=== PATIENT | male | born 1970 | race Caucasian/White ===

== ENCOUNTER 2021-09-24 10:10 | Day surgery (SDC) | payer BC ==
[2021-09-23 14:01] LABS: BASOPHILS # (AUTO) 0.1 X10'3 (0-0.2); BASOPHILS % (AUTO) 0.8 % (0-1); EOSINOPHILS # (AUTO) 0.3 X10'3 (0-0.9); EOSINOPHILS % (AUTO) 3.6 % (0-6); LYMPHOCYTES # (AUTO) 1.6 X10'3 (1.1-4.8); LYMPHOCYTES % (AUTO) 20.8 % (21-51); MEAN CORPUSCULAR HEMOGLOBIN 30.8 PG (27.0-31.0); MEAN CORPUSCULAR HGB CONC 35.2 g/dL (33.0-36.5); MEAN CORPUSCULAR VOLUME 87.4 FL (78-98); MEAN PLATELET VOLUME 7.9 FL (7.4-10.4); MONOCYTES # (AUTO) 0.5 X10'3 (0-0.9); NEUTROPHILS # (AUTO) 5.3 X10'3 (1.8-7.7); NEUTROPHILS % (AUTO) 67.8 % (42-75); PRE OP HEMATOCRIT 44.8 % (42.0-52.0); PRE OP HEMOGLOBIN 15.8 g/dL (14.0-17.9); PRE OP PLATELET COUNT 268 X10'3 (140-440); RED BLOOD COUNT 5.13 X10'6 (4.70-6.10); RED CELL DISTRIBUTION WIDTH 12.7 % (11.5-14.5)
[2021-09-23 14:02] LABS: CLARITY,URINE CLEAR (Clear); COLOR,URINE YELLOW (Yellow); GLUCOSE, URINE NEGATIVE (Neg); KETONES,URINE NEGATIVE (Neg); LEUKOCYTE ESTERASE ,URINE NEGATIVE (Neg); NITRITES, URINE NEGATIVE (Neg); OCCULT BLOOD,URINE NEGATIVE (Neg); PROTEIN,URINE NEGATIVE (Neg)
[2021-09-23 14:15] LABS: ALBUMIN 3.7 G/DL (3.4-5.0); ALBUMIN/GLOBULIN RATIO 0.9 (1.1-1.5); ALKALINE PHOSPHATASE 87 IU/L (46-116); BLOOD UREA NITROGEN 13 MG/DL (7-18); BUN/CREATININE RATIO 11.5 (5.4-32.0); CHLORIDE 105 MMOL/L (99-107); CREATININE 1.13 MG/DL (0.60-1.10); PRE OP ALT 44 U/L (30-65); PRE OP ANION GAP 6 (8-16); PRE OP AST 24 U/L (10-37); PRE OP BILIRUB, TOTAL 0.6 MG/DL (0.0-1.0); PRE OP GLUCOSE 101 MG/DL (70-104); PRE OP POTASSIUM 4.2 MMOL/L (3.4-5.1); PRE OP SODIUM 142 MMOL/L (135-145); TOTAL CARBON DIOXIDE 31.2 MMOL/L (24-32); TOTAL PROTEIN 7.6 G/DL (6.4-8.2); eGFR 68 ML/MIN
[2021-09-23 14:34] LABS: UA COLLECTION TYPE VOIDED
[~2021-09-24] VITALS: Ht 188 cm; Wt 111.1 kg
[2021-09-24] VITALS (11 sets, daily range): BP systolic 129–162; BP diastolic 63–86
[~2021-09-24 10:10] MED LIST: NO HOME MEDS; ceFOXitin 2GM-NS 100mL ADDvant 100 ML IV ONE; famotidine 20mg tablet PO ONE; ringers solution, lacted 1,000 ML IV SCH
[2021-09-24] MEDS ORDERED: fentaNYL/PF 50MCG/1 ML 2ML syringe IV PRN ×2 (10:35)
[2021-09-24] MEDS ORDERED: morphine 2 MG/ML inj. syringe IV PRN (10:35)
[2021-09-24] MEDS ORDERED: ringers solution, lacted 1,000 ML IV SCH (10:35)
[2021-09-24] MEDS ORDERED: morphine 4 MG/ML inj SYRINge IV PRN (10:35)
[2021-09-24] MEDS ORDERED: ondansetron/PF 4mg/2ml inj IV PRN (10:35)
[2021-09-24] MEDS ORDERED: hydrALAZINE 20mg/ml inj. IV PRN (10:35)
[2021-09-24] MEDS ORDERED: labetalol 20mg/4ml (5mg/ml) syringe IV PRN (10:35)
[2021-09-24] MEDS ORDERED: BUPIVAcaine 0.5% inj/PF 30 ML ONE (12:37)
[2021-09-24] MEDS ORDERED: FENTANYL CITRATE/PF 50 MCG/1 ML VIAL ONE (13:18)
[2021-09-24] MEDS ORDERED: midazolam 1 mg/ML 2ml injection ONE (13:19)
[2021-09-24] MEDS ORDERED: LIDOcaine 2% (20mg/ml) 5ml vial ONE (13:25)
[2021-09-24] MEDS ORDERED: propofol inj 20 ML IV ONE (13:25)
[2021-09-24] MEDS ORDERED: rocuronium 10mg/ml inj IV ONE (13:25)
[2021-09-24] MEDS ORDERED: ondansetron/PF 4mg/2ml inj ONE (13:27)
[2021-09-24] MEDS ORDERED: bacitracin 15gm ointment TP ONE (14:23)
--- NOTE | 2021-09-24 14:35 | NUR ---
Received from OR via [facility], accompanied by Anesthesiologist PRESTON and report given by Anesthesiolgist. PT DENIES NAUSEA, C/O INCISIONAL PAIN 2/, DECLINES OFFER OF PAIN MED AT THIS TIME. SM DSGS TO ABD TROCAR SITES, CDI. VSS.
[2021-09-24] MEDS ORDERED: acetaminophen 325mg tablet PO ONE (15:50)
--- NOTE | 2021-09-24 16:15 | NUR ---
PT PAIN LEVEL 3-4/10, MEDICATED WITH PO TYLENOL. VSS. TOLERATING PO FLUIDS WELL. AMBULATED AD MICHELLE AND VOIDED WITHOUT DIFFICULTY. DISCHARGE INSTRUCTIONS EXPLAINED TO PT, HE VERBALIZED UNDERSTANDING. IV DCD CATH INTACT. TAKEN TO CAR VIA , DCD IN STABLE CONDITION.
== END 2021-09-24 16:15 | disposition home or self-care (01) ==
LOC: PAS 10:10
PROVIDERS: ATTEND Surgery
DX: K80.12 Calculus of gallbladder with acute and chronic cholecystitis without obstruction (principal); E66.9 Obesity, unspecified; Z68.31 Body mass index [BMI] 31.0-31.9, adult; Z20.822 Contact with and (suspected) exposure to COVID-19; Z98.890 Other specified postprocedural states; Z86.16 Personal history of COVID-19; Z79.899 Other long term (current) drug therapy; Z83.3 Family history of diabetes mellitus
CPT/HCPCS: 36415; 47562; 80053; 81003; 85025; 87635; 93005; C9803; J0694; J2250; J2405; J2704; J3010; J3490; J7030; J7120; S0020; Z7506; Z7508; Z7512; A4215; A4618; A7000